=== PATIENT | female | born 1970 | race Caucasian/White ===

== ENCOUNTER → 2018-02-16 15:00 | Outpatient (CLI) | payer OTHER | END | disposition home or self-care (01) | LOC: D.CT 15:00 | DX: R10.9 Unspecified abdominal pain (principal) ==

== ENCOUNTER 2018-12-16 00:31 | Inpatient (IN) | payer OTHER ==
[2018-12-16] VITALS (9 sets, daily range): BP systolic 100–149; BP diastolic 55–87; Ht 180.3 cm; Wt 97.0 kg
[~2018-12-16] VITALS: Ht 180.3 cm; Wt 97.0 kg
[2018-12-16] MEDS ORDERED: NEURONTIN 400400 MG PO (00:45)
[2018-12-16] MEDS ORDERED: CYMBALTA60 MG PO (00:45)
[2018-12-16] MEDS ORDERED: SYNTHROID50 MCG PO (00:45)
[2018-12-16] MEDS ORDERED: PERCOCET 10-321 EAC1 PO (00:46)
[2018-12-16] MEDS ORDERED: LISINOPRIL2.5 MG PO (00:46)
[2018-12-16] MEDS ORDERED: PRINIVIL20 MG PO (00:47)
[2018-12-16 01:33] LABS: BASOPHILS 0.1 % (0-2); EOSINOPHILS 0.7 % (0-7); HEMOGLOBIN 14.5 g/dL (12-16); IMMATURE GRANULOCYTES 0.3 % (0-5); LYMPHOCYTES 14.6 % (15-50); MCH 36.1 pg (26.0-34.0); MCHC 36.3 g/dL (31.0-37.0); MCV 99.5 fL (80.0-100.0); MEAN PLATELET VOLUME 8.9 fL (7.4-10.4); MONOCYTES 9.7 % (2-11); NEUTROPHILS 74.6 % (40-80); PLATELET COUNT 156 10x3/uL (130-400); RBC 4.02 10x6/uL (4.00-5.40); RDW 13.2 % (11.5-14.5); WBC 6.7 10x3/uL (4.8-10.8)
[2018-12-16 01:46] LABS: ALBUMIN 3.6 g/dL (3.4-5.0); ALKALINE PHOSPHATASE 109 U/L (46-116); ALT (SGPT) 76 U/L (10-68); CALC OSMOLALITY 270 mosm/kg (275-300); CARBON DIOXIDE 25.3 mmol/L (21.0-32.0); CHLORIDE - SERUM 99 mmol/L (98-107); CREATININE - SERUM 0.7 mg/dL (0.6-1.3); GLUCOSE 121 mg/dL (74-106); POTASSIUM - SERUM 3.9 mmol/L (3.5-5.1); PROTEIN - SERUM 7.6 g/dL (6.4-8.2); SODIUM 136 mmol/L (136-145); UREA NITROGEN 6 mg/dL (7-18); eGFR NON AFRICAN AMERICAN > 90 mL/min (90-120)
[2018-12-16 01:50] LABS: AMYLASE - SERUM 19 U/L (25-115); LIPASE 64 U/L (73-393); TROPONIN-I < 0.017 ng/mL (0.000-0.060)
[2018-12-16 02:35] LABS: APPEARANCE CLEAR (CLEAR); BILIRUBIN NEGATIVE (NEGATIVE); COLOR DK YELLOW (YELLOW); GLUCOSE NEGATIVE (NEGATIVE); KETONE NEGATIVE (NEGATIVE); NITRITE NEGATIVE (NEGATIVE); PROTEIN 1+ mg/dL (NEGATIVE); UROBILINOGEN NORMAL (NORMAL)
[2018-12-16 02:36] LABS: BACTERIA MODERATE /hpf (NONE SEEN); EPITHELIAL CELLS 0-5 /hpf (0-5); RED CELLS - URINE 0-5 /hpf (0-5); WHITE CELLS - URINE 0-5 /hpf (0-5)
[2018-12-16 02:37] LABS: HYALINE CAST 0-5 /lpf (NONE SEEN)
--- NOTE | 2018-12-16 02:50 | NUR ---
PT TO RADIOLOGY.
--- NOTE | 2018-12-16 03:07 | NUR ---
PT RETURNED FROM RADIOLOGY.
--- NOTE | 2018-12-16 04:03 | NUR ---
PT AMBULATING TO BATHROOM WITHOUT DIFFICULTY, STEADY GAIT NOTED.
--- NOTE | 2018-12-16 05:20 | NUR ---
REPORT CALLED TO AXEL MOURA.
--- NOTE | 2018-12-16 06:00 | NUR ---
RECIEVED REPORT FROM [facility], ER. PT AARIVED BY WHEELCHAIR. NO S/S OF DISTRESS. INITIAL VSS, PIV INTACT WITH LEVAQUIN INFUSING ON ARRIVAL. PT HAD AN EPISODE OF VOMITING SOON SHE SAT UP IN BED. PT STATES "THE ZOFRAN IS NOT EFFECTIVE PHENEGRAN, I WILL LIKE SOME PHENEGRAN," WILL NOTIFY INCOMING NURSE AND PASTRY ARTIST. ADMISSION ASSESSMENT COMPLETED. PT IS A GOOD HISTORIAN. PT C/O ABDOMINAL PAIN AND HEADACHE. STATES IT IS A 10. DENIES ANY FURTHER NEEDS AT THIS TIME. WILL CPOC. CL WITHIN REACH. BED IN LOW, SR UP X2.
--- NOTE | 2018-12-16 07:15 | NUR ---
REPORT RECEIVED. SHE C/O HEADACHE ABDOMINAL PAIN AND N/V. ALERT ABLE TO VOICE NEEDS SALINE LOCK IN RIGHT A/C INTACT. SHE IS ON ROOM AIR. I TOLD HER I WILL GET HER SOME MEDS BUT SHE STATES SHE DOES NOT WANT ZOFRAN BECAUSE IT MAKES HER SICK SOMETIMES AND IT HAS DONE NOTHING SO FAR.
--- NOTE | 2018-12-16 07:32 | NUR ---
PHENERGAN 25MG GIVEN IM AT THIS TIME PER NEW ORDER GIVEN BY PATRICK RAZO. SHE ALSO HAD DILADID IVP FOR C/O ABDOMINAL PAIN.
[2018-12-16] MEDS ORDERED: LISINOPRIL-HCT1 EAC4 PO (10:56)
--- NOTE | 2018-12-16 12:30 | NUR ---
SHE HAS HAD SEVERAL BOWEL MOVEMENTS I REMINDED HER TO USE THE HAT TO COLLECT ME SOME STOOL SO I CAN SEND IT TO THE LAB. SHE HAS HAD ONE ACCIDENT TODAY WITH LOOSE STOOL NOTED
--- NOTE | 2018-12-16 17:45 | NUR ---
COLLECTED STOOL SAMPLE AND TOOK TO LAB. SHE HAS BEEN MEDICATED SEVERAL TIMES WITH PAIN MEDICATION AND NAUSEA MED. ALERT ABLE TO VOICE NEEDS
--- NOTE | 2018-12-16 20:00 | NUR ---
ROUNDS COMPLETED. VSS, AAOX4, NO S/S OF DISTRESS. PT C/O ABD AND BACK PAIN. STATES ITS A 01/09. WILL ADMINISTER WHEN DUE. PT DENIES NAUSEA AT THIS TIME. STATES PHENERGAN HELPED ALOT. SPOUSE AT BEDSIDE. PIV INTACT. PT ON CLEAR LIQUID DIET, NOTIFIED PT ON THE NEED TO COLLECT URINE SPECIMEN, PT VERBALIZE UNDERSTANDING. PT DENIES ANY FURTHER NEEDS AT THIS TIME. WILL CPOC.
--- NOTE | 2018-12-16 23:17 | NUR ---
PT C/O ABD AND BACK PAIN PRN 0.5ML GIVEN AT THIS TIME. WILL CTM. CL WITHIN REACH
[2018-12-17] VITALS: BP 125/77
--- NOTE | 2018-12-17 01:25 | NUR ---
PT TEMP 102. NOTIFIED GREGG GONSALES ORDERED TYLENOL 650MG Q6PRN AND ALSO ORDERED BLOOD CULTURES X2. LAB NOTIFIED.
--- NOTE | 2018-12-17 01:39 | NUR ---
PO PRN 650MG TYLENOL GIVEN TO PT AT THIS TIME. A COOL WASH CLOTH PLACED ON PT'S FOREHEAD. WILL CTM.
[2018-12-17 03:28] LABS: BASOPHILS 0.3 % (0-2); CALCIUM 8.3 mg/dL (8.5-10.1); CARBON DIOXIDE 23.8 mmol/L (21.0-32.0); CHLORIDE - SERUM 100 mmol/L (98-107); CREATININE - SERUM 0.6 mg/dL (0.6-1.3); EOSINOPHILS 0.6 % (0-7); GLUCOSE 145 mg/dL (74-106); HEMATOCRIT 34.3 % (36.0-48.0); HEMOGLOBIN 12.1 g/dL (12-16); IMMATURE GRANULOCYTES 0.3 % (0-5); LYMPHOCYTES 27.1 % (15-50); MCH 35.1 pg (26.0-34.0); MCHC 35.3 g/dL (31.0-37.0); MCV 99.4 fL (80.0-100.0); MEAN PLATELET VOLUME 9.2 fL (7.4-10.4); MONOCYTES 11.2 % (2-11); NEUTROPHILS 60.5 % (40-80); PLATELET COUNT 142 10x3/uL (130-400); RBC 3.45 10x6/uL (4.00-5.40); RDW 13.4 % (11.5-14.5); SODIUM 135 mmol/L (136-145); eGFR NON AFRICAN AMERICAN > 90 mL/min (90-120)
[2018-12-17 03:29] LABS: WBC 3.4 10x3/uL (4.8-10.8)
[2018-12-17 03:30] LABS: CALC OSMOLALITY 269 mosm/kg (275-300); POTASSIUM - SERUM 3.2 mmol/L (3.5-5.1); UREA NITROGEN 3 mg/dL (7-18)
[2018-12-17 04:00] VITALS: BP 117/72
--- NOTE | 2018-12-17 04:29 | NUR ---
REASSED PT TEMP NOW 100. PT IN BED NO S/S OF DISTRESS. WILL CTM. FLAGYL AND LEVAQUIN INFUSING AT THIS TIME. WILL CPOC.
--- NOTE | 2018-12-17 06:44 | NUR ---
PT C/O ABDOMINAL, HEAD AND BACK ACHE. PRN DILAUDID 0.5ML GIVEN @ THIS TIME. WILL CTM.
[2018-12-17 08:49] VITALS: BP 130/74
[2018-12-17 12:25] VITALS: BP 115/77
--- NOTE | 2018-12-17 16:23 | NUR ---
I have reviewed this patient and I concur with the Shift Assessment completed by the Licensed Practical Nurse today this shift.
[2018-12-17 16:39] VITALS: BP 128/72
--- NOTE | 2018-12-17 19:10 | NUR ---
BED SIDE REPORT RECEIVED. PT LAYING IN BED. FAMILY AT BED SIDE. PT IS AAO, DENIES ANY NEEDS AT THIS TIME. NAME AND DATE PLACED ON BOARD. BED LOW AND CALL LIGHT IN REACH. NO S/S OF DISTRESS. WILL CPOC
[2018-12-17 20:00] VITALS: BP 109/71
--- NOTE | 2018-12-17 21:35 | NUR ---
PT SITTING UP IN BED, AAOX4. NIGHT MEDS GIVEN PER ORDER. AT BEDSIDE. DENIES ANY NEEDS AT THIS TIME, BED IN LOWEST POSITION, SR X2, CALL LIGHT WITHIN REACH. WILL CPOC.
--- NOTE | 2018-12-17 22:16 | NUR ---
PT LYING IN BED, A&A. REASSESSED PAIN, REPORTS 7, ON A SCALE OF 0-10, INTERMITTENT HEAD AND BACK PAIN, DESCRIBED SHARP AND CRAMPING. BED IN LOWEST POSITION, CALL LIGHT WITHIN REACH, DENIES ANY NEEDS AT THIS TIME. WILL CPOC.
--- NOTE | 2018-12-17 23:59 | NUR ---
NEW BAG OF NS STARTED ORDERED. PT ASKING ABOUT PAIN MEDICATION. WILL CHECK ORDERS
[2018-12-18] VITALS: BP 114/69
--- NOTE | 2018-12-18 00:03 | NUR ---
1 mg of dilaudid given for 9/10 pain in head and 8/10 pain in stomach
--- NOTE | 2018-12-18 00:06 | NUR ---
PT EATING ON POPSICLE. HAD DILAUDID. PT NOW ASKING FOR PHENERGEN WILL CHECK ORDERS.
--- NOTE | 2018-12-18 00:12 | NUR ---
phenergan given as ordered
--- NOTE | 2018-12-18 03:16 | NUR ---
PT LYING IN BED WITH EYES CLOSED, NO S/S OF DISTRESS. FLAGYL INFUSING @ 100 ML/HR, IV SITE FREE OF S/S INFILTRATION. BED IN LOWEST POSITION, SR X2, CALL LIGHT WITHIN REACH. WILL CONTINUE TO MONITOR.
[2018-12-18 04:00] VITALS: BP 101/61
--- NOTE | 2018-12-18 04:30 | NUR ---
PT A&A, LYING IN BED. FLAGYL INFUSION COMPLETE, LEVAQUIN INFUSING @ 100 ML/HR, PER ORDER. REQUESTING DILAUDID, EXPLAINED NEXT AVAILABLE TIME TO ADMINISTER DILAUDID WOULD BE 0500, PER ORDER. BED IN LOWEST POSITION, SR X2, CALL LIGHT WITHIN REACH. WILL CONTINUE TO MONITOR.
[2018-12-18 05:30] LABS: BASOPHILS 0.3 % (0-2); EOSINOPHILS 2.7 % (0-7); HEMATOCRIT 30.9 % (36.0-48.0); HEMOGLOBIN 10.7 g/dL (12-16); IMMATURE GRANULOCYTES 0.3 % (0-5); LYMPHOCYTES 36.3 % (15-50); MCHC 34.6 g/dL (31.0-37.0); MEAN PLATELET VOLUME 8.9 fL (7.4-10.4); MONOCYTES 14.3 % (2-11); NEUTROPHILS 46.1 % (40-80); PLATELET COUNT 127 10x3/uL (130-400); RBC 3.06 10x6/uL (4.00-5.40); RDW 13.8 % (11.5-14.5); WBC 3.3 10x3/uL (4.8-10.8)
--- NOTE | 2018-12-18 05:31 | NUR ---
PT AAOX4, SITTING UP IN BED. ADMINISTERED 0600 MEDS PER ORDER, COMPLAINS OF NECK AND BACK PAIN OF 8, ON A SCALE OF 0-10, SHARP AND CRAMPING. DILAUDID ADMINISTERED, PER ORDER. DENIES ANY OTHER NEEDS AT THIS TIME, BED IN LOWEST POSITION, SR X2, CALL LIGHT WITHIN REACH. WILL CONTINUE TO MONITOR.
[2018-12-18 05:39] LABS: CALC OSMOLALITY 283 mosm/kg (275-300); CALCIUM 8.1 mg/dL (8.5-10.1); CARBON DIOXIDE 26.1 mmol/L (21.0-32.0); CHLORIDE - SERUM 109 mmol/L (98-107); GLUCOSE 130 mg/dL (74-106); POTASSIUM - SERUM 3.5 mmol/L (3.5-5.1); SODIUM 143 mmol/L (136-145); UREA NITROGEN 3 mg/dL (7-18)
[2018-12-18 05:43] LABS: CREATININE - SERUM 0.4 mg/dL (0.6-1.3); eGFR NON AFRICAN AMERICAN > 90 mL/min (90-120)
[2018-12-18 08:30] VITALS: BP 104/67
[2018-12-18 12:44] VITALS: BP 100/59
--- NOTE | 2018-12-18 12:52 | NUR ---
Nutrition follow-up: Pt remains on a clear liquid diet; still with stomach cramping and nausea per nursing Labs reviewed Wt: 199# Will need to begin nutrition support if diet unable to advance past clear liquids within 24-48 hours. May consider starting ProcalAmine PPN @ 75 ml/hr RDN following.
--- NOTE | 2018-12-18 15:19 | NUR ---
I have reviewed this patient and I concur with the Shift Assessment completed by the Licensed Practical Nurse today this shift.
[2018-12-18 16:30] VITALS: BP 103/60
--- NOTE | 2018-12-18 19:16 | NUR ---
PT RESTING IN BED WITH FAMILY AT BED SIDE. PT IS AAO, NO S/S OF DISTRESS. LEFT HAND 22G DRSG COMING OFF. PAUSED THE NS AND CHANGED THE DRSG. LEFT HAND IV NOW CDI, IV PATENT. PT ASKING TO KEEP NS OFF UNTIL AFTER SHOWER. NURSE ALLOWED. NAME AND DATE PLACED ON BOARD. BED LOW AND CALL LIGHT IN REACH. WILL CPOC
[2018-12-18 20:00] VITALS: BP 112/67
--- NOTE | 2018-12-18 21:24 | NUR ---
DILAUDID GIVEN FOR HEAD PAIN, PHENERGAN GIVEN REQUESTED. PT GETTING INTO SHOWER. WILL CPOC
[2018-12-19] VITALS: BP 105/53
[2018-12-19 04:00] VITALS: BP 118/79
--- NOTE | 2018-12-19 05:16 | NUR ---
PHENERGAN GIVEN FOR NAUSEA. PAIN MEDICATION GIVEN FOR PAIN. MORNING SYNTHROID GIVEN. PT DENIES ANY QUESTIONS OR CONCERNS. ASKING ABOUT DIET INCREASING TO SOLIDS. WILL CPOC
[2018-12-19 05:47] LABS: BASOPHILS 0.2 % (0-2); EOSINOPHILS 2.9 % (0-7); HEMATOCRIT 32.3 % (36.0-48.0); HEMOGLOBIN 11.1 g/dL (12-16); IMMATURE GRANULOCYTES 0.4 % (0-5); LYMPHOCYTES 39.3 % (15-50); MCH 34.7 pg (26.0-34.0); MCHC 34.4 g/dL (31.0-37.0); MCV 100.9 fL (80.0-100.0); NEUTROPHILS 44.2 % (40-80); RDW 13.5 % (11.5-14.5)
[2018-12-19 05:48] LABS: PLATELET COUNT 158 10x3/uL (130-400); WBC 4.5 10x3/uL (4.8-10.8)
[2018-12-19 06:14] LABS: CALC OSMOLALITY 288 mosm/kg (275-300); CALCIUM 8.2 mg/dL (8.5-10.1); CARBON DIOXIDE 30.8 mmol/L (21.0-32.0); CHLORIDE - SERUM 108 mmol/L (98-107); CREATININE - SERUM 0.5 mg/dL (0.6-1.3); GLUCOSE 112 mg/dL (74-106); POTASSIUM - SERUM 3.3 mmol/L (3.5-5.1); SODIUM 146 mmol/L (136-145); UREA NITROGEN 3 mg/dL (7-18); eGFR NON AFRICAN AMERICAN > 90 mL/min (90-120)
--- NOTE | 2018-12-19 06:36 | NUR ---
PT RESTING IN BED. AROUSES WHEN NURSE ENTERS ROOM. PT POTASSIUM 3.3 WILL GIVE 40 MEQ PER ELEC. PROTOCOL. DENIES ANY NEEDS. WILL CPOC
[2018-12-19 08:31] VITALS: BP 118/77
[2018-12-19 13:53] VITALS: BP 118/51
[2018-12-19 16:42] VITALS: BP 121/79
--- NOTE | 2018-12-19 19:39 | NUR ---
NIGHT MEDICATIONS GIVEN. PT VERBALIZED UNDERSTANDING IN MEDICATIONS. PT COMPLAINS OF NAUSEA AND PAIN. PHENERGAN AND PERC GIVEN. PT DENIES ANY OTHER NEEDS. NO S/S OF DISTRESS. WILL CPOC
[2018-12-19 20:00] VITALS: BP 133/88
--- NOTE | 2018-12-19 23:22 | NUR ---
PT COMPLAINS OF PAIN. PRN PAIN MEDICATION GIVEN. PT POTASSIUM REDRAW WAS NOT TREATED PER PROTOCOL. 40 MEQ GIVEN. PT WILL CALL FOR NEEDS. WILL CPOC
[2018-12-20] VITALS: BP 115/85
--- NOTE | 2018-12-20 02:57 | NUR ---
PT COMPLAINS OF PAIN. SPOKE WITH PT AND UPDATED ON MEDICATION. PT HAD LAST PERCOCET AT 2321 CANNOT GIVE AT THIS TIME IT WILL BE AVALIBLE AFTER 321 PT VERBALIZED UNDERSTANDING. STARTED FLAGYL ORDERED. PT DENIES ANY OTHER NEEDS AT THIS TIME. WILL CPOC
--- NOTE | 2018-12-20 03:55 | NUR ---
LEVAQUIN STARTED ORDERED. PT COMPLAINS OF PAIN. PERCOCET GIVEN ORDERED. SYNTHROID EARLY PER PT WANTING TO GET SOME SLEEP. PT TUBING CHANGED AND A NEW BAG OF NS INFUSING. LABEL FOR 12/23 WILL CPOC
[2018-12-20 04:00] VITALS: BP 133/80
--- NOTE | 2018-12-20 05:57 | NUR ---
PT ASLEEP. NO S/S OF DISTRESS. RESP EVEN AND UNLABORED. PT WILL CALL FOR ASSIST WHEN NEEDED. WILL CPOC
[2018-12-20 06:31] LABS: BASOPHILS 0.4 % (0-2); CALC OSMOLALITY 285 mosm/kg (275-300); CALCIUM 8.5 mg/dL (8.5-10.1); CARBON DIOXIDE 30.3 mmol/L (21.0-32.0); CHLORIDE - SERUM 108 mmol/L (98-107); CREATININE - SERUM 0.4 mg/dL (0.6-1.3); EOSINOPHILS 3.1 % (0-7); GLUCOSE 102 mg/dL (74-106); HEMATOCRIT 32.4 % (36.0-48.0); IMMATURE GRANULOCYTES 0.6 % (0-5); LYMPHOCYTES 35.5 % (15-50); MCH 34.2 pg (26.0-34.0); MCV 100.6 fL (80.0-100.0); MEAN PLATELET VOLUME 8.8 fL (7.4-10.4); MONOCYTES 11.3 % (2-11); NEUTROPHILS 49.1 % (40-80); PLATELET COUNT 184 10x3/uL (130-400); POTASSIUM - SERUM 3.9 mmol/L (3.5-5.1); RBC 3.22 10x6/uL (4.00-5.40); RDW 13.6 % (11.5-14.5); SODIUM 145 mmol/L (136-145); WBC 4.8 10x3/uL (4.8-10.8); eGFR NON AFRICAN AMERICAN > 90 mL/min (90-120)
[2018-12-20 06:35] LABS: UREA NITROGEN 4 mg/dL (7-18)
[2018-12-20 07:41] VITALS: BP 145/98
[2018-12-20 12:00] VITALS: BP 142/92
[2018-12-20 16:00] VITALS: BP 132/89
--- NOTE | 2018-12-20 16:18 | NUR ---
I have reviewed this patient and I concur with the Shift Assessment completed by the Licensed Practical Nurse today this shift.
--- NOTE | 2018-12-20 19:00 | NUR ---
PATIENT LAYING IN BED. NO COMPLAINTS AT THIS TIME. NO DISTRESS NOTED. FAMILY AT BEDSIDE.
[2018-12-20 20:00] VITALS: BP 120/79
--- NOTE | 2018-12-20 20:11 | NUR ---
PATIENT REPORTS PAIN AND ASKED FOR PAIN MEDICATION. PATIENT RECIEVED PAIN MEDICATION. PATIENT HAS NO OTHER COMPLAINTS AT THIS TIME. NO DISTRESS NOTED.
--- NOTE | 2018-12-21 00:05 | NUR ---
I have reviewed this patient and I concur with the Shift Assessment completed by the Licensed Practical Nurse today this shift.
[2018-12-21 00:07] VITALS: BP 134/83
--- NOTE | 2018-12-21 01:40 | NUR ---
PATIENT LAYING IN BED. EYES CLOSED, CHEST RISING AND FALLING. NO DISTRESS NOTED.
[2018-12-21 04:00] VITALS: BP 110/72
[2018-12-21 04:40] LABS: BASOPHILS 0.5 % (0-2); EOSINOPHILS 3.6 % (0-7); HEMATOCRIT 30.9 % (36.0-48.0); HEMOGLOBIN 10.7 g/dL (12-16); IMMATURE GRANULOCYTES 1.2 % (0-5); LYMPHOCYTES 44.5 % (15-50); MCH 34.6 pg (26.0-34.0); MCHC 34.6 g/dL (31.0-37.0); MEAN PLATELET VOLUME 8.6 fL (7.4-10.4); MONOCYTES 11.2 % (2-11); PLATELET COUNT 197 10x3/uL (130-400); RBC 3.09 10x6/uL (4.00-5.40); RDW 13.6 % (11.5-14.5); WBC 4.2 10x3/uL (4.8-10.8)
[2018-12-21 05:03] LABS: CALC OSMOLALITY 285 mosm/kg (275-300); CALCIUM 8.4 mg/dL (8.5-10.1); CARBON DIOXIDE 29.2 mmol/L (21.0-32.0); CHLORIDE - SERUM 108 mmol/L (98-107); CREATININE - SERUM 0.5 mg/dL (0.6-1.3); GLUCOSE 99 mg/dL (74-106); POTASSIUM - SERUM 3.5 mmol/L (3.5-5.1); SODIUM 145 mmol/L (136-145); UREA NITROGEN 4 mg/dL (7-18); eGFR NON AFRICAN AMERICAN > 90 mL/min (90-120)
--- NOTE | 2018-12-21 07:10 | NUR ---
ALERT AND ORIENTED. LUNGS CLEAR BILATERALLY IN ALL BLANCA. HEART SOUNDS S1 AND S2 HEARD IN ALL BLANCA. BOWEL SOUNDS ACTIVE X 4. SKIN INTACT WITHOUT REDNESS. IV TO RFA PATENT WITHOUT REDNESS. DENIES NEEDS. BED LOW. CALL SNEED AND PERSONAL ITEMS IN REACH. AT BEDSIDE. WILL CONTINUE TO MONITOR.
[2018-12-21 08:27] VITALS: BP 114/78
--- NOTE | 2018-12-21 09:38 | NUR ---
SLEEPING. WILL CONTINUE TO MONITOR.
--- NOTE | 2018-12-21 12:11 | NUR ---
PATIENT SLEEPING. WILL CONTINUE TO MONITOR.
[2018-12-21 12:22] VITALS: BP 122/82
--- NOTE | 2018-12-21 14:23 | NUR ---
SHANELL ESCOBEDO PAGED ABOUT PATIENT DESIRE TO DISCHARGE. WAITING RESPONSE.
--- NOTE | 2018-12-21 14:39 | NUR ---
PATIENT SLEEPING. WILL CONTINUE TO MONITOR.
--- NOTE | 2018-12-21 15:08 | NUR ---
SPOKE WITH SHANELL ESCOBEDO ABOUT PATIENT DESIRE TO DISCHARGE. STATES WILL GO SEE PATIENT. PATIENT AND NOTIFIED.
[2018-12-21] MEDS ORDERED: PROTONIX40 MG PO (15:14)
[2018-12-21] MEDS ORDERED: ZOFRAN4 MG PO (15:15)
[2018-12-21] MEDS ORDERED: FLAGYL500 MG PO (15:19)
[2018-12-21] MEDS ORDERED: LEVAQUIN750 MG PO (15:20)
--- NOTE | 2018-12-21 15:56 | NUR ---
DISCHARGE EDUCATION PROVIDED BOTH WRITTEN AND VERBAL. VERBALIZED UNDERSTANDING. DENIES FURTHER QUESTIONS. IV REMOVED FROM RFA WITH TIP INTACT. EDUCATION PROVIDED ON NEED TO STAY UNTIL 1630 D/T RECEIVING PO PAIN MEDICATION. STATED WON'T BE BACK UNTIL LATER ANYWAY. DENIES FURTHER NEEDS. WILL CONTINUE TO MONITOR.
--- NOTE | 2018-12-21 17:11 | MORECARE ---
CASE MANAGEMENT DISCHARGE SUMMARY PATIENT: CHANO BURR UNIT: [id number] ADM DATE: 12/16/18 AGE: 48 : 68 SEX: F ROOM/BED: D.5681 AUTHOR: XAVIER,DOC PHYSICIAN: REFERRING PHYSICIAN: CURTIS WARD MD DATE OF SERVICE: 12/21/18 Discharge Plan Patient Name: CHANO BURR Facility: [facility]:[place] : 1970 Planned Disposition: Home Anticipated Discharge Date: 12/21/18 Discharge Date: Expected LOS: 5 Initial Reviewer: [email or web address] Initial Review Date: 12/21/2018 Generated: 12/21/18 6:10 pm Comments DCP- Discharge Planning Updated by [email or web address]: Jose Figueroa on 12/21/18 4:[address] Patient Name: CHANO BURR Admission Status: ER Accout number: [id number] Admission Date: 12-16-2018 : 1970 Admission Diagnosis:UNSPECIFIED ABDOMINAL PAIN Attending: CURTIS WARD Current LOS: 5 Anticipated DC Date: 12-21-2018 Planned Disposition: Home [facility] Discharge Planning Comments: CM MET WITH PT IN ROOM TO DISCUSS DISCHARGE PLANNING AND NEEDS. PT REPORTS LIVING AT HOME INDEPENDENTLY WITH HER SPOUSE. PT HAS NO MEDICAL EQUIPMENT AND NO OUTSIDE SERVICES ASSISTING IN THE HOME. CM DISCUSSED AVAILABILITY OF HOME HEALTH, REHAB SERVICES AND MEDICAL EQUIPMENT. PT DENIES DISCHARGE NEEDS, REPORTS HER SPOUSE WILL PICK HER UP FOR DISCHARGE HOME. VBA PROGRAMMER NURSE NOTIFIED. Licensed Clinician: Jose Figueroa DCPIA - Discharge Planning Initial Assessment Updated by [email or web address]: Jose Figueroa on 12/21/18 5:09 pm * Is the patient Alert and Oriented? Yes * How many steps to enter\exit or inside your home? NONE * PCP DR. JUAREZ * Pharmacy [facility] * Preadmission Environment Home with Family * ADLs Independent * Equipment None * Other Equipment NO MEDICAL EQUIPMENT PROVIDER PREFERENCE * List name and contact numbers for known caregivers / representatives who currently or will assist patient after discharge: LEONIE BURR, SPOUSE, * Verbal permission to speak to the caregivers and representatives has been obtained from the patient. N/A * Community resources currently utilized None * Please name any agencies selected above. NONE * Additional services required to return to the preadmission environment? No * Can the patient safely return to the preadmission environment? Yes * Has this patient been hospitalized within the prior 30 days at any hospital? No Patient Name: CHANO BURR Page [id number] at 1711 All edits/amendments must be made on the electronic document DICTATION DATE: 12/21/181709 ENFORCEMENT SAFETY OFFICER: RADHA 12/21/181709 RPT#: [id number] DC DATE: STATUS: ADM IN [facility] [address] [place] [address] END OF REPORT
--- NOTE | 2018-12-21 17:17 | NUR ---
PATIENT DISCHARGED HOME WITH WITH ALL BELONGINGS.
== END 2018-12-21 17:18 | disposition home or self-care (01) | DRG 392 ==
LOC: D.ER 00:31 → D.M2 03:41
PROVIDERS: Family Medicine; ADMIT Internal Medicine Nephrology; ATTEND Internal Medicine Nephrology
DX: A09 Infectious gastroenteritis and colitis, unspecified (principal); F17.213 Nicotine dependence, cigarettes, with withdrawal; I10 Essential (primary) hypertension; E03.9 Hypothyroidism, unspecified; K21.9 Gastro-esophageal reflux disease without esophagitis